=== PATIENT | female | born 1940 | race Caucasian/White ===

== ENCOUNTER → 2017-12-05 11:52 | Outpatient (CLI) | payer MEDICARE, SELFPAY | PROVIDERS: Family Provider Family Medicine; PCP Family Medicine; Visit Provider Nurse Practitioner Adult Health | DX: R82.99 Other abnormal findings in urine (principal) | CPT/HCPCS: 87086; 87088; 87186 ==

== ENCOUNTER 2018-02-20 11:53 | Day surgery (SDC) | payer MEDICARE, SELFPAY ==
--- NOTE | 2018-02-14 11:55 | EKG12_ITS ---
Test Reason : PRE OP Blood Pressure : / mmHG Vent. Rate : 046 BPM Atrial Rate : 046 BPM P-R Int : 162 ms QRS Dur : 086 ms QT Int : 492 ms P-R-T Axes : 086 086 045 degrees QTc Int : 430 ms Marked sinus bradycardia with Possible Premature atrial complexes with Aberrant conduction Nonspecific ST abnormality Abnormal ECG Confirmed by VITA LICEA, SKIP ([id number]), supervising film or videotape editor KAILEE IBANEZ ([id number]) on 02/18/2018 3:50:30 PM Referred By: Dunia Dover Confirmed By:SKIP GORMAN MD
[2018-02-14 13:23] LABS: Hemoglobin 14.6 g/dl (12.0-15.0); Mean Corp Hgb Conc 33.2 g/gl (32-36); Mean Corpuscular Hgb 31.5 pg (27.0-32.0); Mean Corpuscular Volume 94.8 fL (81-99); Mean Platelet Vol. 9.5 fl (6.2-12.0); Platelet Count 201 K/mm3 (150-450); RBC Distribution Width CV 12.8 % (11.6-14.6); RBC Distribution Width SD 43.2 fl (35.1-43.9); Red Blood Count 4.64 M/mm3 (4.2-5.4); Scan Indicated on CBC? Y/N NO; White Blood Count 5.1 K/mm3 (4.4-11.0)
[2018-02-14 13:37] LABS: Prothrombin Time (Protime)PT. 13.2 SECONDS (11.7-14.9)
[2018-02-14 13:38] LABS: Partial Thromboplast Time 28.3 Seconds (24.1-36.2)
[2018-02-14 13:44] LABS: Anion Gap 7 (5-15); BUN 13 mg/dL (7-18); BUN/Creat Ratio 15.3 RATIO (10-20); Calcium,Total 9.6 mg/dL (8.5-10.1); Chloride 102 mmol/L (98-107); Creatinine, Serum 0.85 mg/dL (0.55-1.02); EST Glomerular Filtration Rate 69 mL/min (>60); Est Glom Filt Rate - Afr Amer 84 mL/min (>60); Glucose 87 mg/dL (74-106); Potassium 3.7 mmol/L (3.5-5.1); Sodium Level 140 mmol/L (136-145)
[2018-02-20] VITALS (10 sets, daily range): BP systolic 126–170; BP diastolic 64–88; PULSE 45–70; RESP 14–18; TEMP 36.2–36.8; O2SAT 93–98; BMI 25.5; BMI 26.4
--- NOTE | 2018-02-20 12:55 | PCM.DC ---
You will use the following diet at home:: No restrictions Discharge Activity: May not drive while taking narcotic pain medications., May Shower Return to work on:: 04/08/18 May resume sexual activity in: 4-6 weeks Call your doctor if you observe: Fever of 101 or Higher, Inability to have a bowel movement, Using more than one pad per hour, Calf discomfort, Uncontrolled pain Additional Instructions: You may take 1 or 2 Tylenol 500 mg tablets every 8 hrs. You may add TWO Aleve , OR three (200 mg each) Ibuprofen every 8 hrs for mild pain. Take OxyIR for more severe pain. Allergies/Adverse Reactions: Allergies benazepril Allergy (Verified 02/13/18 12:57) Angioedema meloxicam Allergy (Verified 02/13/18 12:57) Swelling hydrocodone [From Vicodin] Adverse Reaction (Verified 02/13/18 12:57) Vomiting Penicillins [PCN] Adverse Reaction (Verified 02/13/18 12:57) Vomiting Medications to take at Discharge Amlodipine Besylate [Norvasc] 10 mg PO DAILY 02/13/18 Aspirin [Aspir-Low] 81 mg PO DAILY 02/13/18 Cholecalciferol (VIT D3) [Vitamin D] 1,600 unit PO BID 02/13/18 Hydrochlorothiazide [Hctz] 25 mg PO DAILY 02/13/18 Latanoprost 0.005% [Xalatan Opthalmic] 1 drop EACH EYE QHS 02/13/18 Metoprolol Succinate [Toprol Xl] 50 mg PO DAILY 02/13/18 Multivitamin [Multiple Vitamins] 2 each PO DAILY 02/13/18 Omeprazole [Prilosec] 20 mg PO DAILY 02/13/18 Oxybutynin [Ditropan] 5 mg PO DAILY 02/13/18 Sertraline HCl [Zoloft] 12.5 mg PO QHS 02/13/18 Oxycodone [Oxyir] 5 mg PO Q6H PRN PRN 2 Days #8 tablet 02/20/18 Polyethylene Glycol 3350 [Miralax] 17 gm PO DAILY #30 packet 02/20/18 The following prescriptions were given: Oxycodone [Oxyir] 5 mg PO Q6H PRN PRN 2 Days #8 tablet PRN Reason: Mod-Severe Pain (-02/13) Polyethylene Glycol 3350 [Miralax] 17 gm PO DAILY #30 packet Primary Care Physician: Yasemin Montes NP-C [Primary Care Provider] - Test Results: Test results from this visit will be discussed in further detail at your follow-up appointment, if applicable. Please Follow Up With: Dunia Dover MD - [phone] When: in two weeks as scheduled Proposed Discharge Date: 02/21/18
--- NOTE | 2018-02-20 13:01 | DCINST_ITS ---
You will use the following diet at home:: No restrictions Discharge Activity: May not drive while taking narcotic pain medications., May Shower Return to work on:: 04/08/18 May resume sexual activity in: 4-6 weeks Call your doctor if you observe: Fever of 101 or Higher, Inability to have a bowel movement, Using more than one pad per hour, Calf discomfort, Uncontrolled pain Additional Instructions: You may take 1 or 2 Tylenol 500 mg tablets every 8 hrs. You may add TWO Aleve , OR three (200 mg each) Ibuprofen every 8 hrs for mild pain. Take OxyIR for more severe pain. Allergies/Adverse Reactions: Allergies benazepril Allergy (Verified 02/13/18 12:57) Angioedema meloxicam Allergy (Verified 02/13/18 12:57) Swelling hydrocodone [From Vicodin] Adverse Reaction (Verified 02/13/18 12:57) Vomiting Penicillins [PCN] Adverse Reaction (Verified 02/13/18 12:57) Vomiting Medications to take at Discharge Amlodipine Besylate [Norvasc] 10 mg PO DAILY 02/13/18 Aspirin [Aspir-Low] 81 mg PO DAILY 02/13/18 Cholecalciferol (VIT D3) [Vitamin D] 1,600 unit PO BID 02/13/18 Hydrochlorothiazide [Hctz] 25 mg PO DAILY 02/13/18 Latanoprost 0.005% [Xalatan Opthalmic] 1 drop EACH EYE QHS 02/13/18 Metoprolol Succinate [Toprol Xl] 50 mg PO DAILY 02/13/18 Multivitamin [Multiple Vitamins] 2 each PO DAILY 02/13/18 Omeprazole [Prilosec] 20 mg PO DAILY 02/13/18 Oxybutynin [Ditropan] 5 mg PO DAILY 02/13/18 Sertraline HCl [Zoloft] 12.5 mg PO QHS 02/13/18 Oxycodone [Oxyir] 5 mg PO Q6H PRN PRN 2 Days #8 tablet 02/20/18 Polyethylene Glycol 3350 [Miralax] 17 gm PO DAILY #30 packet 02/20/18 The following prescriptions were given: Oxycodone [Oxyir] 5 mg PO Q6H PRN PRN 2 Days #8 tablet PRN Reason: Mod-Severe Pain (-02/13) Polyethylene Glycol 3350 [Miralax] 17 gm PO DAILY #30 packet Primary Care Physician: Yasemin Montes NP-C [Primary Care Provider] - Test Results: Test results from this visit will be discussed in further detail at your follow- up appointment, if applicable. Please Follow Up With: Dunia Dover MD - [phone] When: in two weeks as scheduled Proposed Discharge Date: 02/21/18
--- NOTE | 2018-02-20 13:30 | VAGMU_PTH ---
PATIENT: DENA KELLER LOC: [facility] [place] U#:[id number] AGE/SX: 77/F ROOM: RE02/20/[address]: Dr. Dunia Dover MD : [id number] BED: DIS: 02/21/2018 SPEC #: [id number] RECD: 02/20/18 16:09 STATUS: JOSE DERICK #: [id number] ZOEY: 02/20/18 13:[address]: Dunia Dover DEPT: SURGICAL PATHOLOGY RECD BY: Solis Romero ENTERED: 02/21/18 07:54 SP TYPE: VAG MUCOSA OTHR DR: MD Yasemin Pimentel, HEALTH CLUB MANAGER-C Tissues: Vagina, NOS Procedures: Surgery Specimen Level III HEADER OPERATION: Repair, anterior and posterior PRE-OP DIAGNOSIS: Cystocele and rectocele TISSUE SUBMITTED: Vaginal mucosa MICROSCOPIC DIAGNOSIS Vaginal mucosa, anterior and posterior repair: Pieces of squamous mucosa with reactive changes. SJ:cherri 02/22/18 MICROSCOPIC DESCRIPTION Slides are reviewed. GROSS DESCRIPTION Received in fixative is one container labeled with the patient's name and designated vagina mucosa. The specimen consists of multiple pieces of lugo mucosal tissue that in aggregate measure 7 x 6 x 1 cm. No mucosal lesion is identified. Director External Communications sections are submitted in one cassette. / FRANCO:cherri 02/21/18 TC:5 CPT: 05526
--- NOTE | 2018-02-20 14:44 | PCM.OP.BLANK ---
Operative Report Date of Procedure: 02/20/18 - severe cystocele Procedure: Anterior and posterior repair Preoperative diagnosis: Symptomatic cystocele Prior hysterectomy Postop diagnosis: Symptomatic cystocele Prior hysterectomy Anesthesia: General Syed Farnsworth CRNA Surgeon: Dunia Dover MD Coffee Roaster: EMILY Soto EBL 100 cc Complications: none Drains: Iglesias draining clear yellow urine Fluids: replacement LR Findings: On exam under anesthesia, moderate to severe cystocele noted with good support of vaginal apex, Prior hysterectomy. Mild rectocele. Several hemorrhoids were noted. PATH: vaginal mucosa. Narrative account: After the risks, benefits and alternatives of the procedure were reviewed with the patient , informed consent was obtained. The patient was taken to the Operative room with an IV running . She was positioned in the dorsal supine position on the operating table and given general anesthesia. Once asleep she was positioned to the dorsal lithotomy position and prepped and draped in the usual sterile fashion. A Iglesias catheter was inserted to drain the bladder Allis clamps were used to grasp the anterior vaginal mucosa at the vaginal angles and a transverse incision was made at the vaginal apex. The vaginal mucosa was dissected from from the underlying pubovesical cervical fascia from the vaginal cuff to a point approximately 1-2 cm away from the urethra. Cha plication stitches of 1Vicryl were placed, reducing the cystocele. The anterior vaginal mucosa was trimmed and the anterior vaginal incision was then repaired with interrupted and figure of eight stitches of 2-0 chromic. Attention was then turned then to a posterior repair to reduce the small rectocele noted. A triangular piece of tissue was excised at the posterior vagina / perineal body and the posterior vaginal longitudinal incision was then created using Metzenbaum scissors. The linear incision was carried from the posterior introitus to approx 2-3 cm proximal to the vaginal cuff . The vaginal epithelium was then dissected from the underlying rectovaginal septum. Cha plication stitches of 1-0 Vicryl were then placed reducing the rectocele. The posterior vaginal mucosa was trimmed and the linear incision closed with 2-0 chromic in a running locked fashion. Excellent hemostasis was noted. Vaginal packing was then inserted: 1 iodoform gauze Excellent hemostasis was noted. The Iglesias was attached to the Iglesias bag and clear yellow urine returned. The patient was returned to dorsal supine position and awakened from general anesthesia. She was then transferred to the recovery room bed in stable condition after tolerating the procedure well. Sponge, lap, needle and instrument counts correct times two. Medications given preop and intraoperatively included: Cefotetan 2 gm IV was given hotel front desk clerk to the operating room . For a complete listing of medications given preop and intraoperatively, please see the anesthesia record.
--- NOTE | 2018-02-20 14:51 | OP.PCM_ITS ---
Operative Report Date of Procedure: 02/20/18 - severe cystocele Procedure: Anterior and posterior repair Preoperative diagnosis: Symptomatic cystocele Prior hysterectomy Postop diagnosis: Symptomatic cystocele Prior hysterectomy Anesthesia: General Syed Farnsworth CRNA Surgeon: Dunia Dover MD Stretch Machine Operator: EMILY Soto EBL 100 cc Complications: none Drains: Iglesias draining clear yellow urine Fluids: replacement LR Findings: On exam under anesthesia, moderate to severe cystocele noted with good support of vaginal apex, Prior hysterectomy. Mild rectocele. Several hemorrhoids were noted. PATH: vaginal mucosa. Narrative account: After the risks, benefits and alternatives of the procedure were reviewed with the patient , informed consent was obtained. The patient was taken to the Operative room with an IV running . She was positioned in the dorsal supine position on the operating table and given general anesthesia. Once asleep she was positioned to the dorsal lithotomy position and prepped and draped in the usual sterile fashion. A Iglesias catheter was inserted to drain the bladder Allis clamps were used to grasp the anterior vaginal mucosa at the vaginal angles and a transverse incision was made at the vaginal apex. The vaginal mucosa was dissected from from the underlying pubovesical cervical fascia from the vaginal cuff to a point approximately 1-2 cm away from the urethra. Cha plication stitches of 1Vicryl were placed, reducing the cystocele. The anterior vaginal mucosa was trimmed and the anterior vaginal incision was then repaired with interrupted and figure of eight stitches of 2-0 chromic. Attention was then turned then to a posterior repair to reduce the small rectocele noted. A triangular piece of tissue was excised at the posterior vagina / perineal body and the posterior vaginal longitudinal incision was then created using Metzenbaum scissors. The linear incision was carried from the posterior introitus to approx 2-3 cm proximal to the vaginal cuff . The vaginal epithelium was then dissected from the underlying rectovaginal septum. Cha plication stitches of 1-0 Vicryl were then placed reducing the rectocele. The posterior vaginal mucosa was trimmed and the linear incision closed with 2- 0 chromic in a running locked fashion. Excellent hemostasis was noted. Vaginal packing was then inserted: 1 iodoform gauze Excellent hemostasis was noted. The Iglesias was attached to the Iglesias bag and clear yellow urine returned. The patient was returned to dorsal supine position and awakened from general anesthesia. She was then transferred to the recovery room bed in stable condition after tolerating the procedure well. Sponge, lap, needle and instrument counts correct times two. Medications given preop and intraoperatively included: Cefotetan 2 gm IV was given auto adjudication specialist to the operating room . For a complete listing of medications given preop and intraoperatively, please see the anesthesia record.
[2018-02-20] MEDS: Lactated Ringers 1,000 ML 80 ML IV (17:36)
[2018-02-20] MEDS: Polyethylene Glycol 3350 17 GM PACKET PO (18:17)
[2018-02-20] MEDS: Magnesium Hydroxide 30 ML UDC 15 ML PO (22:41)
[2018-02-20] MEDS: Oxybutynin 5 MG Tablet PO (22:41)
[2018-02-20] MEDS: Pantoprazole Sodium 20 MG Tablet PO (22:42)
[2018-02-20] MEDS: Sertraline 50 MG Tablet 12.5 MG PO (22:42)
[2018-02-21 02:22] VITALS: BP 137/67; PULSE 64; RESP 18; TEMP 36.5; O2SAT 96
[2018-02-21] MEDS: Lactated Ringers 1,000 ML 80 ML IV (05:32)
[2018-02-21 06:36] LABS: Hematocrit 38.2 % (37-47); Hemoglobin 12.8 g/dl (12.0-15.0); Mean Corp Hgb Conc 33.5 g/gl (32-36); Mean Corpuscular Hgb 31.7 pg (27.0-32.0); Mean Corpuscular Volume 94.6 fL (81-99); Mean Platelet Vol. 9.7 fl (6.2-12.0); Platelet Count 173 K/mm3 (150-450); RBC Distribution Width CV 12.3 % (11.6-14.6); RBC Distribution Width SD 41.5 fl (35.1-43.9); Red Blood Count 4.04 M/mm3 (4.2-5.4)
[2018-02-21 06:37] LABS: Scan Indicated on CBC? Y/N NO
[2018-02-21 06:54] LABS: Creatinine, Serum 0.78 mg/dL (0.55-1.02); EST Glomerular Filtration Rate 76 mL/min (>60); Est Glom Filt Rate - Afr Amer 92 mL/min (>60); Estimated Creatinine Clearance 41.97 ml/min
[2018-02-21 08:38] VITALS: BP 138/63; PULSE 61; RESP 18; TEMP 36.9; O2SAT 97
[2018-02-21 08:41] VITALS: PULSE 61
[2018-02-21] MEDS: Pantoprazole Sodium 20 MG Tablet PO (08:41)
[2018-02-21] MEDS: amLODIPine 10 MG Tablet PO (08:41)
[2018-02-21] MEDS: hydroCHLOROthiazide 25 MG Tablet PO (08:41)
[2018-02-21] MEDS: Aspirin E.C. 81 MG Tablet PO (08:41)
[2018-02-21] MEDS: Enoxaparin 40 MG/0.4 ML Syringe SC (08:41)
[2018-02-21] MEDS: Metoprolol(XL)Succ 50 MG Tablet PO (08:41)
[2018-02-21] MEDS: Multivitamins,Therapeutic Tablet 1 TABLET PO (08:41)
[2018-02-21] MEDS: Magnesium Hydroxide 30 ML UDC 15 ML PO (08:48)
[2018-02-21] MEDS: Acetaminophen 500 MG Tablet 1000 MG PO (11:01)
[2018-02-21 11:25] VITALS: O2SAT 94
--- NOTE | 2018-02-21 11:33 | CASEMGMT ---
LW/POA forms in E-chart, dated 1994. SW spoke w/pt in room, confirmed these are the most current POA/LW documents, daughter is POA and is alternate. SW placed copies in the paper chart so they can be scanned into the summary tab. SANJU Schroeder, INTERIOR DESIGN FACULTY MEMBER
[2018-02-21 13:35] VITALS: BP 132/63; PULSE 67; RESP 18; TEMP 36.8; O2SAT 95
[2018-02-21 13:50] VITALS: BP 132/63; PULSE 57; RESP 18; TEMP 36.8; O2SAT 95
--- NOTE | 2018-02-21 14:12 | PCM.PN.OB ---
Subjective: Pt without complaints. Positive flatus. Tolerating diet well. Catheter still in to be removed now. Vag pack removed. - Physical Exam Vital Signs Temp Pulse Resp BP Pulse Ox 98.3 F 57 L 18 132/63 H 95 02/21/18 13:50 02/21/18 13:50 02/21/18 13:50 02/21/18 13:50 02/21/18 13:50 Oxygen Delivery Method Room Air Weight: 154 lb 1.615 oz Body Mass Index (BMI) 26.4 Intake and Output for Last 24 Hours 02/19/18 02/20/18 02/21/18 23:59 23:59 23:59 Intake Total 2017 / 2017 1636 / 1636 Output Total 1800 / 1800 1175 / 1175 Balance 218 / 218 461 / 461 Laboratory Tests Past 24 Hrs 02/21/18 02/21/18 05:36 05:36 WBC 7.0 RBC 4.04 L Hgb 12.8 Hct 38.2 MCV 94.6 MCH 31.7 MCHC 33.5 RDW 12.3 RDW Differential 41.5 Plt Count 173 MPV 9.7 Creatinine 0.78 Estim Creat Clear Calc 41.97 Est GFR (MDRD) Af Amer 92 Est GFR (MDRD) Non-Af 76 Minimal vaginal bleeding. Vag pack out. Hgb and creat OK. Medical Necessity - Tobacco Use Smoking Status: Never smoker Assessment/Plan Doing well. POD 1 s/p AP Repair. Will release to home with routine instructions. F/U 2 and 6 weeks.
== END 2018-02-21 15:50 | disposition home or self-care (01) ==
LOC: SDC 11:54 → AC 11:55 → MS2 15:49
PROVIDERS: Family Provider Nurse Practitioner Family; PCP Nurse Practitioner Family; Referring Provider Obstetrics & Gynecology; Visit Provider Obstetrics & Gynecology
PROC: (CPT 57260; principal; 2018-02-20 13:15)
DX: N81.10 Cystocele, unspecified (principal); N81.6 Rectocele; K64.9 Unspecified hemorrhoids; K21.9 Gastro-esophageal reflux disease without esophagitis; N32.81 Overactive bladder; F41.9 Anxiety disorder, unspecified; Z79.899 Other long term (current) drug therapy; Z79.82 Long term (current) use of aspirin; I10 Essential (primary) hypertension; R94.31 Abnormal electrocardiogram [ECG] [EKG]; R00.1 Bradycardia, unspecified
CPT/HCPCS: 00942; 57260; 36415; 80048; 82565; 85027; 85610; 85730; 86850; 86900; 88304; 93005; 97802; J7120; J2405